=== PATIENT | male | born 1990 | race Caucasian/White ===

== ENCOUNTER 2023-11-22 22:03 | Emergency (ER) | payer BC ==
[2023-11-22] MEDS ORDERED: Lidocaine 1% w/Epinephrine 1:100K 20 ML VIAL ONE (22:21)
== END 2023-11-22 23:34 | disposition home or self-care (01) ==
LOC: MADERS 22:03
DX: S51.011A Laceration without foreign body of right elbow, initial encounter (principal); W22.8XXA Striking against or struck by other objects, initial encounter; Y93.89 Activity, other specified; Y92.59 Other trade areas as the place of occurrence of the external cause
CPT/HCPCS: 12002; 99283